=== PATIENT | female | born 1975 | race Caucasian/White ===

== ENCOUNTER 2022-11-26 06:18 | Day surgery (SDC) | payer OTHER, SELFPAY ==
[2022-11-26] VITALS (10 sets, daily range): BP systolic 104–119; BP diastolic 59–76; PULSE 65–80; RESP 16; TEMP 36.4–36.6; O2SAT 95–100; BMI 25.0
[2022-11-26] MEDS: lidocaine HCL 2 % MULTIDOSE 20 ML VIAL 11 ML INJECTION (07:20)
[2022-11-26] MEDS: BUPIVACAINE 0.5% 30 ML 5 ML INJECTION (07:20)
--- NOTE | 2022-11-26 07:53 | PM.ORPRC ---
Procedure Note Date of procedure: 11/26/22 Procedure: Preop diagnosis: Left upper extremity carpal tunnel syndrome, palmar wart Postop diagnosis: Left upper extremity carpal tunnel syndrome, palmar wart Procedure: Left upper extremity carpal tunnel release, wart excision Anesthesia: Local Surgeon: Alexi Mckee MD loan officer assistant: KISHORE Linn EBL: 5 mL Complications: None Specimens: None Drains: None Indications: The patient has a history of left upper extremity carpal tunnel syndrome symptoms. Despite appropriate nonoperative management consisting of nighttime bracing and occupational therapy they continue to have symptoms. Operative intervention was recommended. The risks, benefits alternatives and expected outcomes were discussed in detail. These included but were not limited to: Infection, bleeding, injury to blood vessel or nerve, venous thromboembolism. All questions were answered to their satisfaction. The patient was placed supine on the operating room table. Local anesthesia was established with 0.5% Marcaine without epinephrine and 2% lidocaine without epinephrine. The hand was prepped and draped in usual sterile fashion. The limb was elevated the forearm pneumatic tourniquet was inflated to 250 mm of mercury. A longitudinal incision was made centered over the radial border of the ring finger at the base of the palm. Subcutaneous dissection was sharply taken through the palmar fascia and the palmaris brevis to the transverse carpal ligament. The ligament was divided in line with the incision. Proximal and distal dissection was carried with tenotomy and Metzenbaum scissors for a wide decompression of the carpal tunnel. Attention was then turned to hypothenar wart. This was excised en bloc with a small elliptical incision. Closed with a nylon suture. The tourniquet was released, bleeding was controlled with direct pressure. The wound was closed with a 3-0 nylon. A bulky dry dressing was applied, sponge and needle counts were correct x 2. The patient tolerated the procedure well, there were no apparent complications. They were sent to same day surgery in satisfactory condition. Plan: Use of the hand as tolerates. Discontinue the intraoperative dressing on postoperative day 3 and may get the wound wet as tolerates. Follow up in the office in 2 weeks for a wound check and suture removal.
== END 2022-11-26 08:18 | disposition home or self-care (01) ==
PROVIDERS: PCP Family Medicine; Visit Provider Orthopaedic Surgery
PROC: (CPT 64721; principal; 2022-11-26 07:15)
DX: G56.02 Carpal tunnel syndrome, left upper limb (principal); B07.8 Other viral warts
CPT/HCPCS: 64721; 11420; J0665

== ENCOUNTER 2022-12-29 13:19 | Outpatient (CLI) | payer OTHER, SELFPAY ==
--- NOTE | 2022-12-29 13:40 | CRLHL7_ITS ---
For Patients: As a result of the Century Cures Act, medical imaging exams and procedure reports are released immediately into your electronic medical record. You may view this report before your referring provider. If you have questions, please contact your health care provider. BILATERAL SCREENING MAMMOGRAM WITH COMPUTER-AIDED DETECTION AND TOMOSYNTHESIS TECHNIQUE: CC and MLO views were obtained. These mammographic images have been obtained using full-field digital technique. These mammographic images were interpreted with the benefit of computer-aided detection. Breast Tomosynthesis was used in this interpretation. COMPARISON FILM: 09/03/2020. FINDINGS: The breasts are heterogeneously dense, which may obscure small masses IMPRESSION: There is no radiographic evidence for malignancy. ASSESSMENT: BI-RADS Category 1: Negative RECOMMENDATION: Routine screening mammogram in 1 year. A lay language report of this examination will be provided to the patient. Da Andrew M.D. Diagnostic Radiologist [email or web address] CUCA/Dictated by: Da Andrew MD @ 12/30/2022 9:57:00 AM (Electronically Signed)
== END 2022-12-29 13:20 | disposition home or self-care (01) ==
LOC: MAMMO 13:20
PROVIDERS: PCP Family Medicine; Visit Provider Family Medicine
DX: Z12.31 Encounter for screening mammogram for malignant neoplasm of breast (principal); R92.2 Inconclusive mammogram
CPT/HCPCS: 77063; 77067

== ENCOUNTER 2023-01-21 07:28 | Day surgery (SDC) | payer OTHER, SELFPAY ==
[2023-01-21] VITALS (11 sets, daily range): BP systolic 105–125; BP diastolic 61–80; PULSE 73–92; RESP 12–16; TEMP 36.6–36.7; O2SAT 96–98; BMI 26.6
[2023-01-21] MEDS: lidocaine HCL 2 % MULTIDOSE 20 ML VIAL INJECTION (07:56)
[2023-01-21] MEDS: BUPIVACAINE 0.5% 30 ML INJECTION (07:56)
--- NOTE | 2023-01-21 08:34 | PM.ORPRC ---
Procedure Note Date of procedure: 01/21/23 Procedure: Preop diagnosis: Right upper extremity carpal tunnel syndrome Postop diagnosis: Right upper extremity carpal tunnel syndrome Procedure: Right upper extremity carpal tunnel release Anesthesia: Local Surgeon: Alexi Mckee MD senior court office assistant: HARDIK Ochoa EBL: 5 mL Complications: None Specimens: None Drains: None Indications: The patient has a history of right upper extremity carpal tunnel syndrome symptoms. Despite appropriate nonoperative management consisting of nighttime bracing and occupational therapy they continue to have symptoms. Operative intervention was recommended. The risks, benefits alternatives and expected outcomes were discussed in detail. These included but were not limited to: Infection, bleeding, injury to blood vessel or nerve, venous thromboembolism. All questions were answered to their satisfaction. The patient was placed supine on the operating room table. Local anesthesia was established with 0.5% Marcaine without epinephrine and 2% lidocaine without epinephrine. The hand was prepped and draped in usual sterile fashion. The limb was elevated the forearm pneumatic tourniquet was inflated to 250 mm of mercury. A longitudinal incision was made centered over the radial border of the ring finger at the base of the palm. Subcutaneous dissection was sharply taken through the palmar fascia and the palmaris brevis to the transverse carpal ligament. The ligament was divided in line with the incision. Proximal and distal dissection was carried with tenotomy and Metzenbaum scissors for a wide decompression of the carpal tunnel. The tourniquet was released , bleeding was controlled with direct pressure. The wound was closed with a 3-0 nylon. A bulky dry dressing was applied, sponge and needle counts were correct x 2. The patient tolerated the procedure well, there were no apparent complications. They were sent to same day surgery in satisfactory condition. Plan: Use of the hand as tolerates. Discontinue the intraoperative dressing on postoperative day 3 and may get the wound wet as tolerates. Follow up in the office in 2 weeks for a wound check and suture removal.
== END 2023-01-21 08:46 | disposition home or self-care (01) ==
PROVIDERS: PCP Family Medicine; Visit Provider Orthopaedic Surgery
PROC: (CPT 64721; principal; 2023-01-21 08:30)
DX: G56.01 Carpal tunnel syndrome, right upper limb (principal)
CPT/HCPCS: 64721; J0665

== ENCOUNTER 2023-08-24 10:23 | Outpatient (CLI) | payer OTHER, SELFPAY ==
--- OUTSIDE RECORDS SUMMARY | 2023-08-24 10:28 | XMS_ITS | Clinical Summary ---
Author Organization Pending sale to [facility] Address [address], [place] [address] Care Team Providers Care Crimping Machine Operator For Metal Name Role Phone Unavailable Primary Care Provider Unavailabl e Source Comments You are receiving this document as you are listed as the primary care provider,follow-up provider, or the patient has been referred to you for consultation.This is in compliance with the Medicare andSt. [facility] EHR Incentive Program,which states Providers who transition their patient to another setting of careor provider of care or refers their patient to another provider of care shouldprovide summary care record for each transition of care or referral. [facility] Allergies No known active allergies Medications Medication Sig Dispensed Refills Start Date End Date Status [place]-3 Fatty Acids ([facility] FISH OIL) 1200 MG CAPS Indications: PN: 04/25/2008 Active Multiple Vitamins-Minerals (MULTIVITAL OR) Take by mouth. 05/01/2011 Activ e levonorgestrel (AKA MIRENA) 20 MCG/24HR IUDIndications:Adeline oviedo,Encounter for insertion of intrauterine contraceptive device 1 each by Intrauterine route See Admin Instructions. To be administered once every 5 years in clinic office. 1 each 0 2014 Active tretinoin (RETIN-A) 0.025 % cream Apply topically every evening. 45 g 5 07/08/2016 Active Additional Information Patient not taking.Reported on 07/31/2016 EPINEPHrine (EPINEPHRINE) 0.3 MG/0.3ML injectionIndication s:Anaphylaxis due to exercise, subsequent encounter Inject 0.3 mL intramuscularly as needed (for allergic reaction). May repeat 2 Each 07/31/2016 Active FLUoxetine (PROZAC) 10 MG tabletIndications:O bsessive-compulsive disorder, unspecified type TAKE 3 TABLETS BY MOUTH EVERY DAY 30 Tablet 02/20/2018 Active Active Problems Problem Noted Date Diagnosed Date Menorrhagia 2014 OCD (obsessive compulsive disorder) 10/20/2010 Major depressive disorder, recurrent 10/20/2010 Allergic rhinitis 08/12/2005 Overview: LW Onset: [id number] ; Rhinitis Allergic NOS Resolved Problems Problem Noted Date Diagnosed Date Resolved Date Annual physical exam 07/02/2011 014 Nosebleed 05/01/2011 06/30/2013 Sexual dysfunction in females 10/20/2010 06/30/2013 Overview: hypoactive desire Immunizations Name Administration Dates Next Due Flu Vac Preserv Free (3+yrs) 12/24/2009 HepA Adult (19+ yrs) 08/11/2000 IPV (Polio) 08/19/2000 Influenza IIV4 (Quadrivalent) 0.5mL (62021) 07/2017,02/12/2014 MMR 10/16/1992 MPSV4 (Menomune) 08/19/2000 Rho(D) - IG, IM 06/14/2007 TDAP (ADACEL) 04/25/2008 Td 08/19/2000,10/16/1992 Typhoid (Typhim Vi, IM) 08/11/2000 YF (Yellow Fever) 08/11/2000 Family History Medical History Relation Name Comments Allergies Mother Arthritis Mother Thyroid Disorder Mother Heart valve Brother Cancer, Colon Maternal Grandfather Cancer, Liver Maternal Grandfather Thyroid Disorder Maternal Grandmother Stroke Paternal Grandfather Allergies Son Asthma Son Depression Other aunt Relation Name Status Comments Father Alive Mother Alive Brother Alive Daughter Alive Maternal Grandfather Maternal Grandmother Paternal Grandfather Paternal Grandmother Alive Son Alive Other Social History Tobacco Use Types Packs/Day Years Used Date Smoking Tobacco: Never Smokeless Tobacco: Never Alcohol Use Standard Drinks/Week Comments Yes 0.8 (1 standard drink = 0.6 oz p ure alcohol) approx 5 per month Sex and Gender Information Value Date Recorded Sex Assigned at Not on file Gender Identity Not on file Sexual Orientation Not on file Last Filed Vital Signs Vital Sign Reading Time Taken Comments Blood Pressure 121/66 09/02/2016 1:37 PM CDT Pulse 77 09/02/2016 1:37 PM CDT Temperature 36.3 ??C (97.3 ??F) 02/12/2014 4:09 PM CS T Respiratory Rate 12 04/04/2015 8:20 AM LADLE WATCHER Oxygen Saturation 97% 06/07/2007 5:32 PM CDT Inhaled Oxygen Concentration - - Weight 71.3 kg (157 lb 3.2 oz) 09/02/2016 1:37 P M CDT Height 170.2 cm (5' 7) 09/02/2016 1:37 PM CDT Body Mass Index 24.62 09/02/2016 1:37 PM CDT Plan of Treatment Health Maintenance Due Date Last Done Comments Colon Cancer Screening Plan Due 1977 Hep C Screening (Preventive Services) 1977 HepB (1) 1996 HepA (2 of 2 - Risk 2-dose series) 02/11/2001 08/11/2000 Adult Preventive Visit 07/31/2017 07/31/2016 Cervical Cancer Screening 09/19/20172014, 07/02/2011, 02/28/2010, Additional history exists DTaP/Tdap/Td (3 - Tdap) 04/25/2018 04/25/19 09, 08/19/2000, 10/16/1992 Cholesterol 2022 07/31/2016, 02/26, 08/12/2005, Additional history exists COVID-19 Vaccine ( season) 2022 Influenza (Season Ended) 2023 018, 02/12/2014, 12/24/2009 Zoster/Shingles (1 of 2) 09/20/2027 IPV (Polio) Aged Out 08/19/2000 No longer eligi ble based on patient's age to complete this topic MCV4 Aged Out 08/19/2000 No longer eligi ble based on patient's age to complete this topic HIV Screening (Preventive Services) Completed 07/15/2009, 02/07/2007 HPV Vaccine Aged Out No longer eligi ble based on patient's age to complete this topic Hib Aged Out No longer eligi ble based on patient's age to complete this topic Pneumococcal Aged Out No longer eligi ble based on patient's age to complete this topic Procedures Procedure Name Priority Date/Time Associated Diagnosis Comments LIPID PANEL & DIRECT LDL (IF NEEDED) Routine 07/31/2016 10:21 AM CDT Screening cholesterol level ANATOMICAL PATH LIQUID BASED Routine 2014 11:55 AM CDT HIV ANTIBODY Routine 07/15/2009 12:01 PM CDT from Last 3 Months or Most Recently Relevant to Health Maintenance Results * Lipid Panel and Direct LDL(If Needed) (07/31/2016 10:21 AM CDT) Cholesterol 175 0 - 199 mg/dL PN SOFT Triglycerides 66 4 - 149 mg/dL PN SOFT HDL Cholesterol 53 >39 mg/dL PN SOFT Cholesterol/HDL Ratio Screen 3.3 PN SOFT LDL Calculated 109 19 - 130 mg/dL PN SOFT Hours Fasting 12.0 PN SOFT 07/31/2016 10:2 1 AM CDT 07/31/2016 2:40 PM CDT Narrative PN SOFT - 07/31/2016 3:17 PM CDT Performed at [facility], [address] [place] [address] CLIA number [id number] Jennifer Duff PA-C LAB_1 PN SOFT [address] [place] [id number] * Pap Smear (2014 11:55 AM CDT) 2014 11:5 5 AM CDT Narrative HP CONVERSION - 09/25/2014 11:57 AM CDT Performed at [place] [id number] FINAL GYNECOLOGICAL CYTOLOGY REPORT Pathology #: [id number] ?Date Obtained: 2014 ? Date Received: 09/20/2014 ??INTERPRETATION/RESULTS: Negative for Intraepithelial Lesion or Malignancy. SPECIMEN ADEQUACY: Satisfactory for Evaluation. ??No endocervical cells/transformation zone component present. Verified on 09/25/2014 ??by RABIA LARSEN(ASCP) (electronic signature) CLINICAL NOTES: ?Abnormal bleeding: No, LMP: 09/14/14, Menstrual status: None ?Apply, Current form of therapy: None apply LIQUID BASED PAP SMEAR SPECIMEN TYPE: ?ROUTINE CERVICAL PAP TEST PLEASE NOTE: The pap smear is a screening test designed to aid in the detection of cervical cancer and its precursor lesions. It is not a diagnostic procedure and should not be used as the sole means of detecting cervical cancer. Both false-positive and false-negative reports may occur. ? End of Report Transcriptions 05/07/2016 6:20 AM CSTNotes Recorded by Tania Lee RN on 09/28/2014 at 11:11 PMDear Cesilia,I am writing to let you know that your PAP and HPV result is negative. This means that your test result was normal. No cancer or precancerous cells were seen.Based on current cervical cancer screening recommendations, your next PAP and HPV should be in 3 years. Continue to schedule your annual preventive exams for your overall health.If you have questions about cervical cancer screening or your test results, callCervical Cancer Screening and Management [phone],Tania Lee RN on behalf ofDr. Baylee Zaragoza, Medical DirectorFederal Correction Institution Hospital Cervical Cancer Screening and Management Da Ramírez MD LAB_1 Performing Organization Address City/State/[facility] Co de Phone Number HP CONVERSION * HIV ANTIBODY (07/15/2009 12:01 PM CDT) HIV 1/HIV 2 Non-React No normal range HP CONVERSION 07/15/2009 12:0 1 PM CDT Rekha Carter MD LAB_1 HP CONVERSION from Last 3 Months or Most Recently Relevant to Health Maintenance
--- OUTSIDE RECORDS SUMMARY | 2023-08-24 10:29 | XMS_ITS | Clinical Summary ---
Author Organization [facility] Address [place], [place] [address] Care Team Providers Care Corporate Services Manager Name Role Phone Pcp, No Primary Care Provider Unavailabl e Allergies No known active allergies Medications Medication Sig Dispensed Refills Start Date End Date Status FISH OIL 1,000 MG CAP 1 tab daily by mouth Active fluoxetine (PROZAC) 10 mg capsule Take 30 mg by mouth one time. Active ibuprofen (MOTRIN IB) 200 mg tablet Take 1-3 tablets by mouth every 6 hours if needed for Other (Specify). for uterine cramping 100 tablet 0 01/14/2010 Active levothyroxine (SYNTHROID) 25 mcg tablet Take 25 mcg by mouth once daily. 01/29/2023 Active albuterol (PROVENTIL) 0.083 % neb solutionIndications :Wheezing Inhale 3 mL (2.5 mg) via a nebulizer every 4 hours if needed for Wheezing or Shortness Of Breath. 60 mL 02/23/2023 Active albuterol HFA (PRO-AIR; VENTOLIN; PROVENTIL) 90 mcg/actuation inhalerIndications: Wheezing Inhale 2 Puffs by mouth 4 times daily if needed for Shortness Of Breath or Wheezing. 2 Each 02/23/2023 Active Active Problems Problem Noted Date Diagnosed Date Previous delivery 01/13/2010 (vaginal after ) 01/13/2010 Resolved Problems Problem Noted Date Diagnosed Date Resolved Date arrhythmia before the onset of labor 09/11/2009 01/13/2010 distress first noted d uring labor and delivery, in liveborn infant 08/18/2007 09/11/2009 Severe pre-eclampsia, unspec ified as to episode of care 08/17/2007 09/11/2009 Supervision of normal first 08/17/2007 08/18/2007 Social History Tobacco Use Types Packs/Day Years Used Date Smoking Tobacco: Never Alcohol Use Standard Drinks/Week Comments No 0 (1 standard drink = 0.6 oz pur e alcohol) Sex and Gender Information Value Date Recorded Sex Assigned at Not on file Gender Identity Not on file Sexual Orientation Not on file Obstetrics History Para Term AB IAB SAB Ectopic Multiple Livin g Live Births 2 2 2 0 0 0 0 0 0 1 2 Date Outcome GA Total Labor Labor/2nd/3rd Weight Sex Delivery Anes PTL Munira A1 A5 Name Cl in 08/17 Term 37w 0d 2.89 kg (6 lb 6 oz) M Epidu ral N Carlee ng Toren Delivery Location:[facility] Comments:Induced for p re-eclampsia 01/13 Term 39w 6d 3.14 kg (6 lb 14.8 oz) F Vag Carlee ng 9 9 ADAM ,BABY GIRL Delivery Location:[facility] Last Filed Vital Signs Vital Sign Reading Time Taken Comments Blood Pressure 124/89 02/23/2023 2:14 PM STORE CONSULTANT Pulse 97 02/23/2023 2:14 PM STORE CONSULTANT Temperature 36.3 ??C (97.3 ??F) 02/23/2023 2:14 PM CS T Respiratory Rate 21 02/23/2023 2:14 PM STORE CONSULTANT Oxygen Saturation 95% 02/23/2023 2:14 PM STORE CONSULTANT Inhaled Oxygen Concentration - - Weight 81.6 kg (180 lb) 02/23/2023 2:14 PM STORE CONSULTANT Height 170.2 cm (5' 7) 01/13/2010 2:30 AM CDT Body Mass Index - - Plan of Treatment Health Maintenance Due Date Last Done Comments Tdap 1988 Depression screening for age 12+ 1989 HIV for age 15-65 1992 BMI (ht and wt on same day) for age 18+ 09/20/1995 Hepatitis C screening for age 18-79 09/20/1995 Tetanus booster 1997 Colonoscopy through age 75 2022 Lipids for age 45-75 2022 Mammogram for age 45-75 2022 COVID-19 vaccine series (2022- season) 2022 02/27/2022, 03/13/2021, 06/28/2020, Additional history exists Pap test for age 21-65 09/04/2023 09/03/2020, 2020 Influenza for age 9-49 11/28/2023 Pneumococcal series for age 6-64 Aged Out No longer eligible based on patient's age to complete this topic Procedures Procedure Name Priority Date/Time Associated Diagnosis Comments DEMAND PLANNING ANALYST THIN PREP PAP SCREEN IMAGED Routine 09/03/2020 12:00 PM CDT from Last 3 Months or Most Recently Relevant to Health Maintenance Results * DEMAND PLANNING ANALYST THIN PREP PAP SCREEN IMAGED (09/03/2020 12:00 PM CDT) Case Report Gynecologic Cytology Report ? Case: [id number] ? Authorizing Provider: ??Radha Polo PA-C ?Collected: ? 09/03/2020 1200 ? Ordering Location: ? [facility] ?Received: ?09/05/2020 0743 ? First Screen: ?Cardenas, Petty ? Specimen: ?DEMAND PLANNING ANALYST ThinPrep Vial Screening, Cervical/Vaginal ? 09/17/2020 8:45 AM CDT [facility] INTERPRETATION/ RESULT NEGATIVE FOR INTRAEPITHELIAL LESION OR MALIGNANCY (NIL) (none) 09/17/2020 8:45 AM CDT [facility] IMEN ADEQUACY Satisfactory for evaluation Endocervical component present 09/17/2020 8:45 AM CDT [facility] HPV REQUEST HPV and PAP 09/17/2020 8:45 AM CDT [facility] Last Pap Date 07/20/2014 09/17/2020 8:45 AM CDT [facility] Last Pap Result NIL 8:45 AM CDT [facility] Menstrual Status Ablation 09/17/2020 8:45 AM CDT [facility] Additional Information 09/17/2020 8:45 AM T [facility] Comment: Interpreted at [facility], Central Laboratory - [address], [place] [address] Automated Review Successful 09/17/2020 8:45 AM T [facility] Comment:Specimen processed s uccessfully by automated real estate services coordinator device, ThinPrep Imaging System, [employer] ANCILLARY TESTING DEMAND PLANNING ANALYST HPV Ordered, Please see separate report 09/17/2020 8:45 AM T [facility] Note The pap test is a screening technique, not a diagnostic procedure. It is used primarily to screen for squamous cancers and precursor lesions. Published studies have shown that it is subject to both false negative and false positive results. The pap test should not be used as the sole means to diagnose or exclude pre-malignant and malignant lesions. 09/17/2020 8:45 AM CDT [facility] Other (Cervical/Vagina l) 09/03/2020 12:00 PM CDT 09/05/2020 7:43 AM CDT [facility] [address] [place] [address], from Last 3 Months or Most Recently Relevant to Health Maintenance Advance Directives * Full Code (Latest Code Status on File) Date Activated Date Inactivated Comments 01/13/2010 11:47 AM 01/14/2010 7:17 PM * Full Code Date Activated Date Inactivated Comments 01/13/2010 7:22 AM 01/13/2010 11:47 AM * Full Code Date Activated Date Inactivated Comments 08/17/2007 11:06 PM 08/18/2007 1:48 PM * Full Code Date Activated Date Inactivated Comments 08/17/2007 9:03 PM 08/17/2007 11:06 PM Care Teams Corporate Services Manager Relationship Specialty Start Date End Date Pcp, No . PCP - General 02/23/23
== END 2023-08-24 10:24 | disposition home or self-care (01) ==
PROVIDERS: PCP Family Medicine; Visit Provider Family Medicine
DX: Z00.00 Encounter for general adult medical examination without abnormal findings (principal); E03.9 Hypothyroidism, unspecified; R53.83 Other fatigue; Z13.6 Encounter for screening for cardiovascular disorders
CPT/HCPCS: 80053; 80061; 84443

== ENCOUNTER 2023-09-16 10:03 | Day surgery (SDC) | payer OTHER, SELFPAY ==
[2023-09-16] VITALS (9 sets, daily range): BP systolic 107–115; BP diastolic 58–67; PULSE 67–77; RESP 16; TEMP 36.6–36.8; O2SAT 98–100; BMI 26.7
--- OUTSIDE RECORDS SUMMARY | 2023-09-16 10:06 | XMS_ITS | Clinical Summary ---
Author Organization [facility] Address [address], [place] [address] Care Team Providers Care Sew On Operator Name Role Phone Unavailable Primary Care Provider Unavailabl e Source Comments You are receiving this document as you are listed as the primary care provider,follow-up provider, or the patient has been referred to you for consultation.This is in compliance with the Medicare andPrem[facility] Medical Centercaid EHR Incentive Program,which states Providers who transition their patient to another setting of careor provider of care or refers their patient to another provider of care shouldprovide summary care record for each transition of care or referral. [facility]Found[facility] Allergies No known active allergies Medications Medication Sig Dispensed Refills Start Date End Date Status [place]-3 Fatty Acids ([facility] FISH OIL) 1200 MG [...] 10/20/2010 Allergic rhinitis 08/12/2005 Overview: LW Onset: [id number] ; Rhinitis Allergic NOS Resolved Problems Problem Noted Date Diagnosed Date Resolved Date Annual physical exam 07/02/2011 014 Nosebleed 05/01/2011 06/30/2013 Sexual dysfunction in females 10/20/2010 06/30/2013 Overview: hypoactive desire Immunizations Name Administration Dates Next Due Flu Vac Preserv Free (3+yrs) 12/24/2009 HepA Adult (19+ yrs) 08/11/2000 IPV (Polio) 08/19/2000 Influenza IIV4 (Quadrivalent) 0.5mL (39661) 07/2017,02/12/2014 MMR 10/16/1992 MPSV4 (Menomune) 08/19/2000 Rho(D) [...] T Respiratory Rate 12 04/04/2015 8:20 AM BAKERY MANAGER Oxygen Saturation 97% 06/07/2007 5:32 PM CDT [...] - 07/31/2016 3:17 PM CDT Performed at [facility], [address] [place] [address] CLIA number [id number] Jennifer Duff PA-C LAB_1 PN SOFT [address] [place] [address] [id number] * Pap Smear (2014 11:55 AM CDT) 2014 11:5 5 AM CDT Narrative HP CONVERSION - 09/25/2014 11:57 AM CDT Performed at [place] [id number] FINAL GYNECOLOGICAL CYTOLOGY REPORT Pathology #: [id number] ?Date Obtained: 2014 ? Date Received: 09/20/2014 [...] test results, callCervical Cancer Screening and Management [phone],Tania Lee RN on behalf ofDr. Baylee Zaragoza, Medical DirectorM Health [facility]view [facility] Cervical Cancer Screening and Management Da Ramírez MD LAB_1 Performing Organization Address City/State/[facility] Co de Phone Number HP CONVERSION * HIV ANTIBODY (07/15/2009 12:01 PM CDT) HIV 1/HIV 2 Non-React No normal range HP CONVERSION 07/15/2009 12:0 1 PM CDT Rekha Carter MD LAB_1 HP CONVERSION from Last 3 Months or Most Recently Relevant to Health Maintenance
--- OUTSIDE RECORDS SUMMARY | 2023-09-16 10:06 | XMS_ITS | Clinical Summary ---
Author Organization [facility] Address [place], [place] [address] Care Team Providers Care Silk Screen Cutter Name Role Phone Pcp, No Primary Care [...] d uring labor and delivery, in liveborn 08/18/2007 09/11/2009 Severe pre-eclampsia, unspec ified as [...] Outcome GA Total Labor Labor/2nd/3rd Weight Sex Type Anes PTL Munira A1 A5 Name Clin 2007 Term 37w 0d 2.89 kg (6 lb 6 oz) M C-Sec tion Epidur al N Livin g Toren Delivery Location:[facility] Comments:Induced for p re-eclampsia 2009 Term 39w 6d 3.14 kg (6 lb 14.8 oz) F Vag Livin g 9 9 ADAM, BABY GIRL Delivery Location:[facility] Last Filed Vital Signs Vital Sign Reading Time Taken Comments Blood Pressure 124/89 02/23/2023 2:14 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 Pulse 97 02/23/2023 2:14 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 Temperature 36.3 ??C (97.3 ??F) 02/23/2023 2:14 PM CS T Respiratory Rate 21 02/23/2023 2:14 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 Oxygen Saturation 95% 02/23/2023 2:14 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 Inhaled Oxygen Concentration - - Weight 81.6 kg (180 lb) 02/23/2023 2:14 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 Height 170.2 cm (5' 7) 01/13/2010 2:30 [...] Procedure Name Priority Date/Time Associated Diagnosis Comments TIMBER SKIDDER THIN PREP PAP SCREEN IMAGED Routine 09/03/2020 12:00 PM CDT from Last 3 Months or Most Recently Relevant to Health Maintenance Results * TIMBER SKIDDER THIN PREP PAP SCREEN IMAGED (09/03/2020 12:00 PM CDT) Case Report Gynecologic Cytology Report ? Case: [id number] ? Authorizing Provider: ??Radha Polo PA-C ?Collected: ? 09/03/2020 1200 ? Ordering Location: ? [facility] ?Received: ?09/05/2020 0743 ? First Screen: ?Cardenas, Petty ? Specimen: ?TIMBER SKIDDER ThinPrep Vial Screening, Cervical/Vaginal ? 09/17/2020 8:45 AM CDT [facility] INTERPRETATION/ RESULT NEGATIVE FOR INTRAEPITHELIAL LESION OR MALIGNANCY (NIL) (none) 09/17/2020 8:[address] [facility] IMEN ADEQUACY Satisfactory for evaluation Endocervical component present 09/17/2020 8:[address] [facility] HPV REQUEST HPV and PAP 09/17/2020 8:45 AM CDT [facility] Last Pap Date 07/20/2014 09/17/2020 8:45 AM CDT [facility] Last Pap Result NIL 8:45 AM T [facility] Menstrual Status Ablation 09/17/2020 8:[address] [facility] Additional Information 09/17/2020 8:45 AM T [facility] Comment: Interpreted at [facility], Central Laboratory - [address], [place] [address] Automated Review Successful 09/17/2020 8:[address] [facility] Comment:Specimen processed s uccessfully by automated air export agent device, ThinPrep Imaging System, [employer] ANCILLARY TESTING TIMBER SKIDDER HPV Ordered, Please see separate report 09/17/2020 8:[address] [facility] Note The pap test [...] and malignant lesions. 09/17/2020 8:[address] [facility] Other (Cervical/Vagina l) 09/03/2020 12:00 PM CDT 09/05/2020 7:43 AM CDT June Melani [facility] PATHOLOGY/CYTOLOGY [facility] [address] [place] [address], from Last 3 Months or Most Recently [...] 9:03 PM 08/17/2007 11:06 PM Care Teams Silk Screen Cutter Relationship Specialty Start Date End Date Pcp, No . PCP - General 02/23/23
[2023-09-16] MEDS: BUPIVACAINE 0.5 %/EPI 1:200K INJECTION (10:20)
[2023-09-16] MEDS: BETAMETHASONE SOD PHOS/ACETATE 6 MG/ML ML INJECTION ×2 (10:30)
--- NOTE | 2023-09-16 11:57 | SUR.PREOP ---
SAME DAY SURGERY LOCAL INJECTION SITE VERIFICATION WAS PERFORMED BY SURGEON/PA AND PATIENT PRIOR TO LOCAL ANESTHETIC BEING INJECTED TO OPERATIVE SITE.
--- NOTE | 2023-09-16 12:01 | SUR.PREOP ---
SAME DAY SURGERY LOCAL INJECTION SITE VERIFICATION WAS PERFORMED BY SURGEON AND PATIENT PRIOR TO LOCAL ANESTHETIC BEING INJECTED TO OPERATIVE SITE- bilateral middle fingers
--- NOTE | 2023-09-16 12:18 | P.ORPRC_ITS ---
Procedure Note Date of procedure: 09/16/23 Procedure: Preop diagnosis: Left thumb, bilateral middle finger stenosing tenosynovitis Postop diagnosis: Left thumb, bilateral middle finger stenosing tenosynovitis Procedure: Left thumb A1 josh release, bilateral middle finger flexor tendon sheath ultrasound-guided steroid injection Anesthesia: Local Surgeon: Alexi Mckee MD doctor's assistant: Casper Tamayo PA-C EBL: 1 mL Complications: None Specimens: None Drains: None Preoperative antibiotics: None Indications: The patient has a history of left thumb and bilateral middle finger painful catching and locking. Despite appropriate non operative management including flexor tendon sheath corticosteroid injections they continue to have symptoms. Operative intervention was recommended. The risks, benefits alternatives and expected outcomes were discussed in detail. These included but were not limited to: Infection, bleeding, injury to blood vessel or nerve, venous thromboembolism. All questions were answered to their satisfaction. The patient was seated on the hospital bed in the procedure room. The palm at the base of the middle finger was prepped bilaterally. We used a sterile probe cover and sterile gel with the ultrasound transducer in the long axis, the middle finger flexor tendon sheath of both hands was injected with 1 mL 1% lidocaine without epinephrine, 6 mg Celestone. She tolerated both injections well. The left thumb MP flexion crease was anesthetized with 8 mL of 0.25% Marcaine without epinephrine, 1% lidocaine with epinephrine for trigger for thumb release. She was then transported to the operating room. She was placed supine on the operating room table. Local anesthesia was established with 0.5% Marcaine with epinephrine and 2% lidocaine with epinephrine. The hand was prepped and draped in usual sterile fashion. A transverse incision was made in the MP flexion crease of the thumb. Subcutaneous dissection was taken through the palmar fascia to the flexor tendons with the tenotomy scissors. The A1 josh was released with the 15 blade and the tenotomy scissors. The edges of the A1 josh were sharply resected. Active flexion and extension of the thumb shows no catching or locking, no bowstringing of the flexor tendons. The wound was closed with interrupted nylon sutures. A dry dressing was applied the tourniquet was released. Sponge and needle counts were correct x 2. The patient tolerated the procedure well, there were no apparent complications. They were sent to same day surgery in satisfactory condition. Plan: Use of the hand as tolerates. Discontinue the intraoperative dressing on postoperative day 3 and may get the wound wet as tolerates. Follow up in the office in 2 weeks for a wound check and suture removal.
== END 2023-09-16 12:51 | disposition home or self-care (01) ==
LOC: OR 10:05
PROVIDERS: PCP Family Medicine; Visit Provider Orthopaedic Surgery
PROC: (CPT 26055; principal; 2023-09-16 11:30)
DX: M65.312 Trigger thumb, left thumb (principal); M65.841 Other synovitis and tenosynovitis, right hand; M65.842 Other synovitis and tenosynovitis, left hand
CPT/HCPCS: 26055; 20550 ×2; J0702; J3490

== ENCOUNTER 2023-10-05 06:28 | Outpatient (CLI) | payer OTHER, SELFPAY ==
--- OUTSIDE RECORDS SUMMARY | 2023-10-05 06:31 | XMS_ITS | Clinical Summary ---
Author Organization [facility] Address [address], [place] [address] Care Team Providers Care Hydrostatic Tubing Tester Name Role Phone Unavailable Primary Care Provider Unavailabl e Source Comments You are receiving this document as you are listed as the primary care provider,follow-up provider, or the patient has been referred to you for consultation.This is in compliance with the Medicare and[facility] Systemcaid EHR Incentive Program,which states Providers who transition their patient to another setting of careor provider of care or refers their patient to another provider of care shouldprovide summary care record for each transition of care or referral. [facility] Allergies No known active allergies Medications Medication Sig Dispensed Refills Start Date End Date Status [place]-3 Fatty Acids ([facility] FISH OIL) 1200 MG [...] 10/20/2010 Allergic rhinitis 08/12/2005 Overview: LW Onset: [id number] ; Rhinitis Allergic NOS Resolved Problems Problem Noted Date Diagnosed Date Resolved Date Annual physical exam 07/02/2011 014 Nosebleed 05/01/2011 06/30/2013 Sexual dysfunction in females 10/20/2010 06/30/2013 Overview: hypoactive desire Immunizations Name Administration Dates Next Due Flu Vac Preserv Free (3+yrs) 12/24/2009 HepA Adult (19+ yrs) 08/11/2000 IPV (Polio) 08/19/2000 Influenza IIV4 (Quadrivalent) 0.5mL (87941) 07/2017,02/12/2014 MMR 10/16/1992 MPSV4 (Menomune) 08/19/2000 Rho(D) [...] T Respiratory Rate 12 04/04/2015 8: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 Oxygen Saturation 97% 06/07/2007 5:32 PM CDT Inhaled Oxygen Concentration - - Weight 71.3 kg (157 lb 3.2 oz) 09/02/2016 1:37 P M CDT Height 170.2 cm (5' 7) 09/02/2016 1:37 PM CDT Body Mass Index 24.62 09/02/2016 1:37 PM CDT Plan of Treatment Health Maintenance Due Date Last Done Comments Colon Cancer Screening Plan Due 1977 Hep C Screening (Preventive Services) 1975 Mammogram 1977 HepB (1) 1996 HepA (2 of 2 - Risk 2-dose series) 02/11/2001 08/11/2000 Adult Preventive Visit 07/31/2017 07/31/2016 Cervical Cancer Screening 09/19/20172014, 07/02/2011, 02/28/2010, Additional history exists DTaP/Tdap/Td (3 - Tdap) 04/25/2018 04/25/19, 08/19/2000, 10/16/1992 Cholesterol 2022 07/31/2016, 02/26, 08/12/2005, Additional history exists COVID-19 Vaccine ( season) 2022 Influenza (#1) 2023 01/31/2018, 01/27, 12/24/2009 Zoster/Shingles (1 of 2) 09/20/2027 IPV (Polio) Aged Out 08/19/2000 No longer eligi ble based on patient's age to complete this topic MCV4 Aged Out 08/19/2000 No longer eligi ble based on patient's age to complete this topic HIV Screening (Preventive Services) Completed 07/15/2009, 02/07/2007 Hib Aged Out No longer eligi ble [...] - 07/31/2016 3:17 PM CDT Performed at [facility], [address] [place] [address] CLIA number [id number] Jennifer Duff PA-C LAB_1 Performing Organization Address City/State/[facility] Co de Phone Number PN SOFT [address] [place] [address] * Pap Smear (2014 11:55 AM CDT) 2014 11:5 5 AM CDT Narrative HP CONVERSION - 09/25/2014 11:57 AM CDT Performed at [facility], [facility] [place] [address] FINAL GYNECOLOGICAL CYTOLOGY REPORT Pathology #: [id number] ?Date Obtained: 2014 ? Date Received: 09/20/2014 [...] test results, callCervical Cancer Screening and Management [phone],Tania Lee RN on behalf ofDr. Baylee Zaragoza, Medical DirectorCommunity Regional Medical Centertabby Alvarengaet Cervical Cancer Screening and Management Da Ramírez MD LAB_1 HP CONVERSION * HIV ANTIBODY (07/15/2009 12:01 PM CDT) HIV 1/HIV 2 Non-React No normal range HP CONVERSION 07/15/2009 12:0 1 PM CDT Rekha Carter MD LAB_1 HP CONVERSION from Last 3 Months or Most Recently Relevant to Health Maintenance
--- OUTSIDE RECORDS SUMMARY | 2023-10-05 06:31 | XMS_ITS | Clinical Summary ---
Author Organization [facility] Address [place], [place] [address] Care Team Providers Care Disk Recoater Name Role Phone Pcp, No Primary Care [...] Epidur al N Livin g Toren Delivery Location:[facility] Comments:Induced for p re-eclampsia 2009 Term 39w 6d 3.14 kg (6 lb 14.8 oz) F Vag Livin g 9 9 ADAM, BABY GIRL Delivery Location:[facility] Last Filed Vital Signs Vital Sign Reading Time Taken Comments Blood Pressure 124/89 02/23/2023 2:14 PM HAIR DESIGNER Pulse 97 02/23/2023 2:14 PM HAIR DESIGNER Temperature 36.3 ??C (97.3 ??F) 02/23/2023 2:14 PM CS T Respiratory Rate 21 02/23/2023 2:14 PM HAIR DESIGNER Oxygen Saturation 95% 02/23/2023 2:14 PM HAIR DESIGNER Inhaled Oxygen Concentration - - Weight 81.6 kg (180 lb) 02/23/2023 2:14 PM HAIR DESIGNER Height 170.2 cm (5' 7) 01/13/2010 2:30 [...] Procedure Name Priority Date/Time Associated Diagnosis Comments FABRICATION SUPERVISOR THIN PREP PAP SCREEN IMAGED Routine 09/03/2020 12:00 PM CDT from Last 3 Months or Most Recently Relevant to Health Maintenance Results * FABRICATION SUPERVISOR THIN PREP PAP SCREEN IMAGED (09/03/2020 12:00 PM CDT) Case Report Gynecologic Cytology Report ? Case: [id number] ? Authorizing Provider: ??Radha Polo PA-C ?Collected: ? 09/03/2020 1200 ? Ordering Location: ? [facility] ?Received: ?09/05/2020 0743 ? First Screen: ?Cardenas, Petty ? Specimen: ?FABRICATION SUPERVISOR ThinPrep Vial Screening, Cervical/Vaginal ? 09/17/2020 8:45 AM CDT [facility] INTERPRETATION/ RESULT NEGATIVE FOR INTRAEPITHELIAL LESION OR MALIGNANCY (NIL) (none) 09/17/2020 8:[address] [facility] IMEN ADEQUACY Satisfactory for evaluation Endocervical component present 09/17/2020 8:[address] [facility] HPV REQUEST HPV and PAP 09/17/2020 8:45 AM CDT [facility] Last Pap Date 07/20/2014 09/17/2020 8:45 AM CDT [facility] Last Pap Result NIL 8:45 AM T [facility] Menstrual Status Ablation 09/17/2020 8:[address] [facility] Additional Information 09/17/2020 8:45 AM T [facility] Comment: Interpreted at [facility], Central Laboratory - [address], [place] [address] Automated Review Successful 09/17/2020 8:[address] [facility] Comment:Specimen processed s uccessfully by automated temple meat cutter device, ThinPrep Imaging System, [employer] ANCILLARY TESTING FABRICATION SUPERVISOR HPV Ordered, Please see separate report 09/17/2020 8:[address] [facility] Note The pap test is a [...] malignant lesions. 09/17/2020 8:[address] [facility] Other (Cervical/Vagina l) 09/03/2020 12:00 PM CDT 09/05/2020 7:43 AM CDT June Melani HOLLOWAY PATHOLOGY/CYTOLOGY [facility] [address] [place] [address], from Last 3 Months or Most Recently [...] 9:03 PM 08/17/2007 11:06 PM Care Teams Disk Recoater Relationship Specialty Start Date End Date Pcp, No . PCP - General 02/23/23
--- NOTE | 2023-10-05 07:48 | W.ANESCHARGE ---
Anesthesia Charges Start Date/Time Anesthesia Start Date: 10/05/23 Anesthesia Start Time: 07:21 Stop Date/Time Anesthesia Stop Date: 10/05/23 Anesthesia Stop Time: 07:45
--- NOTE | 2023-10-05 08:44 | W.ANESCHARGE ---
Anesthesia Charges Start Date/Time Anesthesia Start Date: 10/05/23 Anesthesia Start Time: 07:21 Stop Date/Time Anesthesia Stop Date: 10/05/23 Anesthesia Stop Time: 07:45
== END 2023-10-05 06:29 | disposition home or self-care (01) ==
PROVIDERS: PCP Family Medicine; Visit Provider Internal Medicine
DX: Z12.11 Encounter for screening for malignant neoplasm of colon (principal); K64.9 Unspecified hemorrhoids
CPT/HCPCS: 00811; 00812; J2704

== ENCOUNTER 2025-02-07 10:06 | Outpatient (CLI) | payer OTHER, SELFPAY | END 2025-02-07 10:07 | disposition home or self-care (01) | LOC: NFLDREF 02-13 17:50 | PROVIDERS: PCP Family Medicine; Referring Provider Family Medicine; Visit Provider Family Medicine | DX: E03.9 Hypothyroidism, unspecified (principal); E78.00 Pure hypercholesterolemia, unspecified; R53.83 Other fatigue; E55.9 Vitamin D deficiency, unspecified | CPT/HCPCS: 80053; 80061; 82306; 84443 ==